=== PATIENT | female | born 1970 | race Caucasian/White ===

== ENCOUNTER 2024-09-13 15:11 | Emergency (ER) | payer SELFPAY ==
--- OUTSIDE RECORDS SUMMARY | 2024-09-13 15:59 | XMS_ITS | Clinical Summary ---
Author Organization [facility] Address [address] [place] [address]. [place], [place] [id number] [place] [id number] Care Team Providers Care Diagnostic Technologist Name Role Phone Unavailable Primary Care Provider Unavailabl e Social History Tobacco Use Types Packs/Day Years Used Date Smoking Tobacco: Never Assessed Comments Unknown Sex and Gender Information Value Date Recorded Sex Assigned at Not on file Legal Sex Female 8:09 PM CDT Gender Identity Not on file Sexual Orientation Not on file Plan of Treatment Health Maintenance Due Date Last Done Comments Cervical Cancer Screening Pa p Smear (Age 30 to 64) Every 3 Years 1970 Colorectal Cancer Screening Colonoscopy (10 Years) 1970 Annual Physical 1973 Hepatitis C 1988 DTaP, Tdap and Td Vaccines ( 1 - Tdap) 1989 Hepatitis B Vaccines (1 of 3 - 19+ 3-dose series) 1989 Cervical Cancer Screening Pa p with HPV Testing (Age 30 to 64) Every 5 Years 2000 Cervical Cancer Screening with HPV 2000 Mammogram Screening 2010 Zoster Vaccines (1 of 2) 2020 COVID-19 Vaccine (2023-2 5 season) 2024 Influenza Adult (#1) 2024 Meningococcal B Vaccine Aged Out No l onger eligible based on patient's age to complete this topic Meningococcal Vaccine Aged Out No ranjan lissa eligible based on patient's age to complete this topic Pneumococcal Vaccine: Pediat rics (0 to 5 Years) and At-Risk Patients (6 to 64 Years) Aged Out No longer eligible b ased on patient's age to complete this topic RSV Immunizations Under 20 Months Aged Out No longer eligible based on patient's age to complete this topic
--- OUTSIDE RECORDS SUMMARY | 2024-09-13 15:59 | XMS_ITS | CONTINUITY OF CARE DOCUMENT ---
Author Name reyna orellana Address Unknown Organization [facility] Address [id number] [place] [address] [address] [place] [address] Phone [phone] Care Team Providers Care Home Health Occupational Therapist Name Role Phone Deepak Christianson MD Unavailable [phone] Deepak Christianson MD Unavailable [phone] INSURANCE PROVIDERS Payer name Policy type / Coverage type [place] [employer] party ID [place] [employer] Medicaid [id number]
[2024-09-13 16:14] VITALS: BP 149/106; PULSE 95; RESP 16; TEMP 36.3; O2SAT 99
--- NOTE | 2024-09-13 16:17 | ED_ITS ---
HPI - Female Genitourinary General Chief complaint: Urogenital-Female <Darcy Cooper PA-C - Last Filed: 09/13/24 16:18> Stated complaint: uti <GUERRERO Mireles Last Filed: 09/13/24 16:18> Time Seen by Provider: 09/13/24 19:20 <Darcy Cooper PA-C - Last Filed: 09/13/24 16:18> Focused HPI: 54-year-old female presents emergency department with concerns for urinary tract infection. Patient states she has had intermittent malodorous urine for several years. States she was reading up on an read that it can cause damage if you have an untreated urinary tract infection which caused her to come to the ED. She also states she has been having intermittent left flank pain which concerned her and is concerned it is her kidneys. She denies injury trauma, abdominal pain, history of kidney stones, hematuria dysuria, urinary frequency urgency, fever, nausea or vomiting. States back pain is worse with movement. GENERAL: Well-appearing, well-nourished, and in no acute distress. HEAD: Normocephalic, atraumatic. CHEST: Clear to auscultation. ?No respiratory distress. ABD: Abdomen soft, nontender, no rebound, guarding or rigidity. No CVA tenderness BACK: Midline thoracolumbar spinous tenderness, crepitus, step-offs or deformities. HEART: Regular rate and rhythm.? NEURO: ?Alert and oriented x3. Patient screened in triage and initial orders placed.? ?Additional care and disposition to be based upon?diagnostic testing and treatment. <Darcy Cooper PA-C - Last Filed: 09/13/24 16:18> Source: patient <GUERRERO Dyer Last Filed: 09/13/24 19:43> Mode of arrival: ambulatory <GUERRERO Dyer Last Filed: 09/13/24 19:43> Limitations: no limitations <GUERRERO Dyer Last Filed: 09/13/24 19:43> History of Present Illness HPI Narrative: Agree with triage note above <GUERRERO Dyer Last Filed: 09/13/24 19:43> Review of Systems Review of Systems: All systems as dictated in HPI <Shun Tobar PA-C - Last Filed: 09/13/24 19:43> Exam Narrative: GENERAL: Well-appearing, well-nourished, and in no acute distress. HEAD: Normocephalic, atraumatic. EYES: PERRLA and EOMI. ENT: Nares clear, no rhinorrhea or epistaxis. Mucous membranes moist. Oropharynx without tonsillar hypertrophy exudate or other lesions. NECK: Supple. No adenopathy or masses. CHEST: No respiratory distress. Clear to auscultation. No wheezes rales or rhonchi HEART: Regular rate and rhythm. No murmur heard. Normal peripheral pulses. ABDOMEN: Soft, nontender, nondistended, normal active bowel sounds. MSK: Normal range of motion. No edema. SKIN: Warm, dry, no rash. NEURO: Alert and oriented x4. No focal deficits. PSYCH: Normal mood and affect. <Shun Tobar PA-C - Last Filed: 09/13/24 19:43> Course Vital Signs Vital signs: Vital Signs Temperature 97.4 F L 09/13/24 16:14 Pulse Rate 95 09/13/24 16:14 Respiratory Rate 16 09/13/24 16:14 Blood Pressure 149/106 H 09/13/24 16:14 Pulse Oximetry 99 09/13/24 16:14 Temperature 97.4 F L 09/13/24 16:14 Pulse Rate 95 09/13/24 16:14 Respiratory Rate 16 09/13/24 16:14 Blood Pressure 149/106 H 09/13/24 16:14 Pulse Oximetry 99 09/13/24 16:14 <Darcy Cooper PA-C - Last Filed: 09/13/24 16:18> Vital Signs Temperature 97.4 F L 09/13/24 16:14 Pulse Rate 95 09/13/24 16:14 Respiratory Rate 16 09/13/24 16:14 Blood Pressure 149/106 H 09/13/24 16:14 Pulse Oximetry 99 09/13/24 16:14 Temperature 97.4 F L 09/13/24 16:14 Pulse Rate 95 09/13/24 16:14 Respiratory Rate 16 09/13/24 16:14 Blood Pressure 149/106 H 09/13/24 16:14 Pulse Oximetry 99 09/13/24 16:14 <Shun Tobar PA-C - Last Filed: 09/13/24 19:43> MDM - Female Genitourinary MDM Narrative Medical decision making narrative: This is a 54-year-old female who presents to the ED for UTI symptoms over the past month. Vitals are normal. Exam does not reveal any abdominal tenderness or flank tenderness. She has no nausea or vomiting or other systemic symptoms at this time. UA is nitrite positive with 1+ leuks, 21-50 whites and 4+ bacteria. Presentation consistent with cystitis. Does not show evidence of pyelonephritis or ureteral stone on exam today. Rx for cefdinir given as well Zofran. Patient will be discharged in stable condition. Supportive measures discussed and return precautions given. Patient is understanding and agreeable with plan for discharge with PCP follow-up. <Shun Tobar PA-C - Last Filed: 09/13/24 19:43> Lab Data Labs: Lab Results 09/13/24 Range/Units 18:42 Urine Color Yellow (Yellow) Urine Appearance Clear (Clear) Urine pH 5.5 (5.0-9.0) Ur Specific [place] 1.026 (1.001-1.035) Urine Protein Negative (Negative) mg/dL Urine Glucose (UA) Negative (Negative) mg/dL Urine Ketones Trace H (Negative) mg/dL Ur Blood (Man) Negative (Negative) Urine Nitrate Positive H (Negative) Urine Bilirubin Negative (Negative) Urine Urobilinogen 0.2 (<2.0) mg/dL Leukocyte Esterase Rfl 1+ H (Negative) CHAYITO/UL Urine RBC 0-2 (0-2) /hpf Urine WBC 21-50 H (0-3) /hpf Ur Squamous Epith Cells None seen (Few) /hpf Urine Bacteria 4+ H /hpf Urine Casts 0-2 <Darcy Cooper PA-C - Last Filed: 09/13/24 16:18> Lab Results 09/13/24 Range/Units 18:42 Urine Color Yellow (Yellow) Urine Appearance Clear (Clear) Urine pH 5.5 (5.0-9.0) Ur Specific [place] 1.026 (1.001-1.035) Urine Protein Negative (Negative) mg/dL Urine Glucose (UA) Negative (Negative) mg/dL Urine Ketones Trace H (Negative) mg/dL Ur Blood (Man) Negative (Negative) Urine Nitrate Positive H (Negative) Urine Bilirubin Negative (Negative) Urine Urobilinogen 0.2 (<2.0) mg/dL Leukocyte Esterase Rfl 1+ H (Negative) CHAYITO/UL Urine RBC 0-2 (0-2) /hpf Urine WBC 21-50 H (0-3) /hpf Ur Squamous Epith Cells None seen (Few) /hpf Urine Bacteria 4+ H /hpf Urine Casts 0-2 <GUERRERO Dyer Last Filed: 09/13/24 19:43> Discharge Plan Discharge Clinical Impression: Urinary tract infection <GUERRERO Mireles Last Filed: 09/13/24 16:18> Patient Disposition: Home, Self-Care <GUERRERO Mireles Last Filed: 09/13/24 16:18> Condition: Stable <GUERRERO Mireles Last Filed: 09/13/24 16:18> Instructions: Antibiotic Form <GUERRERO Mireles Last Filed: 09/13/24 16:18> Additional Instructions: Your exam today does show evidence of UTI. Please take antibiotics as prescribed. Use Zofran as needed for nausea. Continue with Tylenol and ibuprofen every 4-6 hours as needed for pain or fevers. Return to the ER for new or worsening symptoms including uncontrolled fevers, vomiting or uncontrollable pain. Follow-up with PCP closely on this issue. <GUERRERO Mireles Last Filed: 09/13/24 16:18> Patient Language: Swazi <GUERRERO Mireles Last Filed: 09/13/24 16:18> Prescriptions: New cefdinir 300 mg capsule 300 mg PO Q12H 10 Days Qty: 20 0RF ondansetron 4 mg tablet,disintegrating 4 mg PO Q8H PRN (Reason: nausea and vomiting) Qty: 10 0RF <GUERRERO Mireles Last Filed: 09/13/24 16:18> Follow-up/Referrals: PHYSICIAN,[employer] ARCHITECT [Primary Care Provider] - <Darcy Cooper PA-C - Last Filed: 09/13/24 16:18> Time of Disposition: 19:36 <Darcy Cooper PA-C - Last Filed: 09/13/24 16:18> 19:36 <Shun Tobar PA-C - Last Filed: 09/13/24 19:43>
[2024-09-13 18:53] LABS: Add Urine Microscopic? YES; Appearance Urine Clear (Clear); Bacteria Urine 4+ /hpf; Bilirubin Urine Negative (Negative); Blood Urine Negative (Negative); Color Urine Yellow (Yellow); Glucose Urine UA Negative (Negative); Ketones Urine Trace mg/dL (Negative); Leukocyte Esterase Ur 1+ LEU/UL (Negative); Nitrate Urine Positive (Negative); Non Pathogenic Casts 0-2; Protein Urine Negative (Negative); RBC Urine 0-2 /hpf (0-2); Specific Grav Ur 1.026 (1.001-1.035); Squamous Epithelial Cell Urine None Seen /hpf (Few); Urobilinogen Urine 0.2 mg/dL (<2.0); WBC Urine 21-50 /hpf (0-3); pH Urine 5.5 (5.0-9.0)
--- OUTSIDE RECORDS SUMMARY | 2024-09-13 19:43 | XMS_ITS | Clinical Summary ---
Author Organization [facility] Address [address] [place] [address]. [place], [place] [id number] [place] [id number] Care Team Providers Care Windows Laptop Technician Name Role Phone Unavailable Primary Care Provider [...]
--- OUTSIDE RECORDS SUMMARY | 2024-09-13 19:43 | XMS_ITS | CONTINUITY OF CARE DOCUMENT ---
Author Name reyna orellana Address Unknown Organization [facility] Address [id number] [place] [address] [address] [place] [address] Phone [phone] Care Team Providers Care Shipping Associate Name Role Phone Deepak Christianson MD Unavailable [phone] Deepak Christianson MD Unavailable [phone] INSURANCE PROVIDERS Payer name Policy type / Coverage type [employer] [employer] party ID [place] [employer] Medicaid [id number]
== END 2024-09-13 19:45 | disposition home or self-care (01) ==
PROVIDERS: Physician Assistant; Emergency Provider Physician Assistant
DX: N39.0 Urinary tract infection, site not specified (principal)
CPT/HCPCS: 81001; 87086; 87186; 99283